=== PATIENT | male | born 1955 | race Caucasian/White ===

== ENCOUNTER 2019-05-30 08:00 | Emergency (ER) | payer MEDICARE ==
[~2019-05-30] VITALS: Ht 175.3 cm; Wt 59.0 kg
[~2019-05-30 08:00] MED LIST: Apap-Butalbita1 EACH PO; Aspir 8181 MG PO; CARV6.25 PO; LISI5 PO; SERT100 PO; SPIR25 PO; SUMA25 PO; TORSE20
[2019-05-30] MEDS ORDERED: Amoxicillin500 MG PO (08:40)
[2019-05-30] MEDS ORDERED: HYDR1TAB94 PO (08:49)
== END 2019-05-30 09:09 | disposition home or self-care (01) ==
LOC: ER 08:00
DX: K04.7 Periapical abscess without sinus (principal); K02.9 Dental caries, unspecified; I50.9 Heart failure, unspecified; E11.9 Type 2 diabetes mellitus without complications; F32.9 Major depressive disorder, single episode, unspecified; Z88.8 Allergy status to other drugs, medicaments and biological substances; Z88.1 Allergy status to other antibiotic agents; Z79.899 Other long term (current) drug therapy; Z79.82 Long term (current) use of aspirin; Z98.818 Other dental procedure status
CPT/HCPCS: 99283; A9270-GY

== ENCOUNTER 2019-06-17 14:58 | Emergency (ER) | payer OTHER, MEDICARE ==
[~2019-06-17] VITALS: Ht 175.3 cm; Wt 53.1 kg
[~2019-06-17 14:58] MED LIST changes: +Amoxicillin500 MG PO; +HYDR1TAB94 PO
[2019-06-17 16:05] LABS: BASOPHILS ABSOLUTE AUTO 0.04 K/mm3 (0.00-0.23); BASOPHILS PERCENT AUTO 0 % (0-2); EOSINOPHILS ABSOLUTE AUTO 0.45 K/mm3 (0.00-0.68); EOSINOPHILS PERCENT AUTO 5 % (0-6); Hemoglobin 12.2 g/dL (13.5-17.5); IMMATURE GRAN ABSOLUTE AUTO 0.03 K/mm3 (0.00-0.10); IMMATURE GRAN PERCENT AUTO 0 % (0-1); LYMPHOCYTES ABSOLUTE AUTO 2.16 K/mm3 (0.84-5.20); LYMPHOCYTES PERCENT AUTO 24 % (21-46); MONOCYTES ABSOLUTE AUTO 0.63 K/mm3 (0.16-1.47); MONOCYTES PERCENT AUTO 7 % (4-13); Mean Corpuscular HGB 29.8 pg (26.0-34.0); Mean Corpuscular Volume 90 fL (80-100); Mean Platelet Volume 8.6 fL (9.1-12.4); NEUTROPHILS PERCENT AUTO 63 % (41-73); Platelet Count 351 K/mm3 (150-400); RDW Coefficient Variation 14.3 % (11.7-14.2); RDW Standard Deviation 47.2 fL (35.1-46.3); White Blood Cell Count 9.01 K/mm3 (4.00-11.30)
[2019-06-17 16:18] LABS: Alanine Aminotransfer (ALT/SGP 24 U/L (12-78); Albumin, Blood 3.9 g/dL (3.4-5.0); Alk Phos 109 U/L (50-136); Anion Gap 6 mmol/L (6-16); Aspartate Aminotrans (AST/SGOT 15 U/L (12-37); Bilirubin, Total 0.6 mg/dL (0.1-1.0); Blood Urea Nitrogen 18 mg/dL (8-24); Bun/Creatinine Ratio 19.6 (12.0-20.0); CO2, Blood 27 mmol/L (21-32); Calcium, Blood 9.8 mg/dL (8.5-10.1); Chloride, Blood 99 mmol/L (98-108); Creatinine, Blood 0.92 mg/dL (0.60-1.20); Globulin, Blood 4.1 g/dL (2.2-4.0); Glomerular Filtration Rate >60 (60-); Glucose, Blood 383 mg/dL (70-99); Potassium, Blood 4.2 mmol/L (3.5-5.5); Sodium, Blood 132 mmol/L (136-145)
== END 2019-06-17 17:42 | disposition home or self-care (01) ==
LOC: ER 14:58
PROVIDERS: Physician Assistant
DX: E86.0 Dehydration (principal); E11.9 Type 2 diabetes mellitus without complications; Z88.8 Allergy status to other drugs, medicaments and biological substances; Z88.1 Allergy status to other antibiotic agents; Z79.899 Other long term (current) drug therapy; I11.0 Hypertensive heart disease with heart failure; Z79.82 Long term (current) use of aspirin; I50.9 Heart failure, unspecified; F32.9 Major depressive disorder, single episode, unspecified; D64.9 Anemia, unspecified; G43.909 Migraine, unspecified, not intractable, without status migrainosus; K21.9 Gastro-esophageal reflux disease without esophagitis; E03.9 Hypothyroidism, unspecified
CPT/HCPCS: 36415; 80053; 85025; 93005; 93010; 96360; 99284-25; J7030

== ENCOUNTER 2020-12-26 04:02 | Inpatient (IN) | payer OTHER, MEDICARE ==
[~2020-12-26] VITALS: Ht 175.3 cm; Wt 45.5 kg
[2020-12-26 04:53] LABS: BASOPHILS ABSOLUTE AUTO 0.03 K/mm3 (0.00-0.23); BASOPHILS PERCENT AUTO 0 % (0-2); EOSINOPHILS PERCENT AUTO 0 % (0-6); Hematocrit 37.7 % (37.0-53.0); Hemoglobin 12.6 g/dL (13.5-17.5); IMMATURE GRAN ABSOLUTE AUTO 0.09 K/mm3 (0.00-0.10); IMMATURE GRAN PERCENT AUTO 1 % (0-1); LYMPHOCYTES ABSOLUTE AUTO 0.58 K/mm3 (0.84-5.20); LYMPHOCYTES PERCENT AUTO 3 % (21-46); MONOCYTES ABSOLUTE AUTO 0.56 K/mm3 (0.16-1.47); MONOCYTES PERCENT AUTO 3 % (4-13); Mean Corpuscular HGB 27.9 pg (26.0-34.0); Mean Corpuscular HGB Conc 33.4 g/dL (31.5-36.5); Mean Corpuscular Volume 83 fL (80-100); Mean Platelet Volume 8.5 fL (9.1-12.4); NEUTROPHILS ABSOLUTE AUTO 16.91 K/mm3 (1.96-9.15); NEUTROPHILS PERCENT AUTO 93 % (41-73); Platelet Count 410 K/mm3 (150-400); RDW Coefficient Variation 13.2 % (11.7-14.2); RDW Standard Deviation 40.2 fL (35.1-46.3); Red Blood Cell Count 4.52 M/mm3 (4.30-5.90); White Blood Cell Count 18.17 K/mm3 (4.00-11.30)
[2020-12-26 05:07] LABS: Troponin I 0.021 ng/mL (0.000-0.040)
[2020-12-26 05:08] LABS: Alanine Aminotransfer (ALT/SGP 24 U/L (12-78); Albumin, Blood 3.2 g/dL (3.4-5.0); Albumin/Globulin Ratio 0.6 (0.8-1.8); Alk Phos 248 U/L (50-136); Anion Gap 7 mmol/L (6-16); Aspartate Aminotrans (AST/SGOT 23 U/L (12-37); Bilirubin, Total 0.5 mg/dL (0.1-1.0); Blood Urea Nitrogen 25 mg/dL (8-24); Bun/Creatinine Ratio 28.5 (12.0-20.0); CO2, Blood 30 mmol/L (21-32); Calcium, Blood 9.1 mg/dL (8.5-10.1); Chloride, Blood 88 mmol/L (98-108); Creatinine, Blood 0.88 mg/dL (0.60-1.20); Globulin, Blood 5.6 g/dL (2.2-4.0); Glomerular Filtration Rate >60 (60-); Glucose, Blood 687 mg/dL (70-99); Potassium, Blood 3.7 mmol/L (3.5-5.5); Sodium, Blood 125 mmol/L (136-145); Total Protein, Blood 8.8 g/dL (6.4-8.2)
[2020-12-26 06:07] LABS: Source, Urine Clean Catch
[2020-12-26 06:15] LABS: Appearance, Urine Clear (Clear); Bilirubin, Urine Neg (Neg); Blood, Urine 2+ (Neg); Color, Urine Yellow (P-Yellow); Glucose Qualitative, Urine 4+ (Neg); Ketones, Urine Neg (Neg); Leukocyte Esterase, Urine 3+ (Neg); Nitrite, Urine Neg (Neg); Protein, Urine 2+ (Neg); Urobilinogen, Urine NORM (Normal); pH, Urine 6.5 (5.0-8.0)
[2020-12-26 06:21] LABS: Bacteria Many /hpf; Red Blood Cells, Urine 0-2 /hpf (0-2); Squamous Epithelial Cells Not Seen /hpf (Few); White Blood Cells, Urine 25-50 /hpf (0-5)
[2020-12-26 07:41] LABS: Glucose, Blood 619 mg/dL (70-99)
[2020-12-26 08:16] LABS: Influenza A, PCR NEGATIVE (NEGATIVE); Influenza B, PCR NEGATIVE (NEGATIVE); Resp Syncytial Virus, PCR NEGATIVE (NEGATIVE); SARS-Cov-2 (COVID-19) PCR, MMC NEGATIVE (NEGATIVE)
[2020-12-26 08:38] LABS: Glucose, Blood 594 mg/dL (70-99)
--- NOTE | 2020-12-26 09:29 | NUR ---
PT ADMITTED TO ICU 8 FROM ER AT 0830 PCU STATUS. PT IS CACHECTIC. STATES HE HAS POOR APPETITE AND PROBLEMS WITH HIS TEETH. PT IS A/O X4, C/O PAIN IN L SIDE/FLANK AREA. GAVE TYLENOL AND FENTANYL WITH GOOD RESULTS. PT CAN REPOSITION SELF IN BED. NO SIGN OF DISTRESS. CALL LIGHT IN REACH.
[2020-12-26 11:56] LABS: Glucose, Blood 492 mg/dL (70-99)
--- NOTE | 2020-12-26 12:33 | NUR ---
PT RESTING IN BED. GLUCOSE CONTINUES TO BE HIGH. GAVE SS INSULIN, HAVE CALL OUT TO DR. COFFMAN. PT IS NPO.
--- NOTE | 2020-12-26 18:28 | NUR ---
SUMMARY PT HAS BEEN RESTING MOST OF THE DAY. HAS R SIDE FLANK PAIN AT TIMES. FENTANYL AND TYLENOL GIVEN PRN. GLUCOSE WAS ELEVATED MOST OF THE DAY. DR. COFFMAN NOTIFIED. NEW ORDERS FOR SEMGLFRITZ TONIGHT. AFTER AFTERNOON DOSE OF INSULIN GLUCOSE WAS IN THE 90'S BEFORE DINNER. PT EATING A SOFT DIET WELL. NO SIGN OF DISTRESS. NO OTHER CHANGES.
--- NOTE | 2020-12-26 20:58 | NUR ---
CARE ASSUMPTION PT PCU STATUS. A&O X4. VSS. SPO2 > 92% ON RA. LUNG SOUNDS CLEAR. MONITOR SHOWING SR-ST, HR 90's-105. PT REPORTS ABD PAIN, STATING "IT STARTED ON MY LEFT SIDE, BUT IT'S BEEN MOVING OVER ONTO MY R SIDE NOW TOO." PT DESCRIBES PAIN AN "ACHE" X3 WEEKS. PT MEDICATED PER EMAR/PT REQUEST. PT REPORTS POOR OVERALL ORAL INTAKE, STATING "I'VE JUST BEEN SO DRY." NS GTT INFUSING PER ORDERS & PT PROVIDED W/ BEVERAGE PER PT REQUEST. PT NOTED TO BE VERY FRAIL. PT ABLE TO REPOSITION SELF IN BED & ENCOURAGED TO DO SO FREQUENTLY ABLE.
[2020-12-27 03:28] LABS: BASOPHILS ABSOLUTE AUTO 0.02 K/mm3 (0.00-0.23); BASOPHILS PERCENT AUTO 0 % (0-2); EOSINOPHILS ABSOLUTE AUTO 0.03 K/mm3 (0.00-0.68); EOSINOPHILS PERCENT AUTO 0 % (0-6); Hematocrit 26.4 % (37.0-53.0); IMMATURE GRAN ABSOLUTE AUTO 0.06 K/mm3 (0.00-0.10); IMMATURE GRAN PERCENT AUTO 0 % (0-1); LYMPHOCYTES ABSOLUTE AUTO 0.84 K/mm3 (0.84-5.20); LYMPHOCYTES PERCENT AUTO 6 % (21-46); MONOCYTES ABSOLUTE AUTO 0.46 K/mm3 (0.16-1.47); MONOCYTES PERCENT AUTO 3 % (4-13); Mean Corpuscular HGB 28.5 pg (26.0-34.0); Mean Corpuscular HGB Conc 34.1 g/dL (31.5-36.5); Mean Corpuscular Volume 84 fL (80-100); Mean Platelet Volume 8.3 fL (9.1-12.4); NEUTROPHILS PERCENT AUTO 90 % (41-73); Platelet Count 288 K/mm3 (150-400); RDW Coefficient Variation 13.5 % (11.7-14.2); RDW Standard Deviation 41.8 fL (35.1-46.3); Red Blood Cell Count 3.16 M/mm3 (4.30-5.90); White Blood Cell Count 14.01 K/mm3 (4.00-11.30)
[2020-12-27 03:56] LABS: Anion Gap 4 mmol/L (6-16); Blood Urea Nitrogen 25 mg/dL (8-24); Bun/Creatinine Ratio 25.2 (12.0-20.0); CO2, Blood 30 mmol/L (21-32); Calcium, Blood 7.9 mg/dL (8.5-10.1); Chloride, Blood 102 mmol/L (98-108); Creatinine, Blood 0.99 mg/dL (0.60-1.20); Glomerular Filtration Rate >60 (60-); Glucose, Blood 82 mg/dL (70-99); Potassium, Blood 3.4 mmol/L (3.5-5.5); Sodium, Blood 136 mmol/L (136-145)
[2020-12-27] MEDS ORDERED: LISI5 PO (03:57)
[2020-12-27] MEDS ORDERED: TORS10 PO (03:58)
[2020-12-27] MEDS ORDERED: SPIR25 PO (03:58)
--- NOTE | 2020-12-27 05:51 | NUR ---
SHIFT SUMMARY PT CONTINUES TO BE A&O X4. VSS. SPO2 > 92% ON RA. MONITOR SHOWING SR-ST, HR 90's-110. PT REPORTS NOT HAVING TAKEN ANY OF HIS HOME MEDICATIONS EXCEPT FOR HIS INSULIN FOR "ABOUT A MONTH", STATING "I WAS TRYING TO SELF DIAGNOSE. I WAS GETTING SO DIZZY I COULDN'T KEEP MY OWN HEAD UP." PT C/O L&R SIDED ABD PAIN, MEDICATED W/ PRN IV FENTANYL X1 THIS SHIFT W/ PT REPORT OF IMPROVEMENT. PT HS CBG 139 THIS SHIFT W/ PT REPORT OF NORMALLY TAKING 50 UNITS OF LONG ACTING INSULIN @ HOME & STATING "MY BLOOD SUGAR IS ALWAYS HIGH IN THE HUNDREDS IN THE MORNING." PT MEDICATED W/ CURRENT ORDER OF 20 UNITS LONG ACTING INSULIN PER EMAR AFTER DISCUSSION W/ PT. PT PROVIDED W/ MAGIC CUP SNACK IN MIDDLE OF NIGHT ALONG W/ CHEESE & CRACKERS PER PT REQUEST D/T PT STATEMENT "I FEEL LIKE MY BLOOD SUGAR IS GOING TO GET LOW." CBG THEN 89 W/ AM LABS AFTER SNACK. PT THEN GIVEN ORANGE JUICE & PUDDING PER PT REQUEST. NS GTT INFUSING PER ORDERS. WILL CONTINUE TO MONITOR & PROVIDE CARE UNTIL REPORT OFF TO DAY SHIFT RN.
[2020-12-27] MEDS ORDERED: AMLO5 PO (09:16)
[2020-12-27] MEDS ORDERED: FAMO20 PO (09:19)
[2020-12-27] MEDS ORDERED: LOSA50 PO (09:21)
[2020-12-27] MEDS ORDERED: PSYSENPA PO (09:22)
--- NOTE | 2020-12-27 17:01 | NUR ---
PATIENT IS ALERT AND ORIENTED AND IS COOPERATIVE WITH CARE. PATIENT WAS TRANSFERRED UP HERE FROM ICU THIS AFTERNOON. C/O FLANK PAIN, TREATED PER EMAR. NO C/O NAUSEA OR VOMTIING. PATIENT USES URINAL. CALLS APPROPRIATELY FOR HELP. WILL CONTINUE TO MONITOR
[2020-12-28 04:52] LABS: BASOPHILS ABSOLUTE AUTO 0.02 K/mm3 (0.00-0.23); BASOPHILS PERCENT AUTO 0 % (0-2); EOSINOPHILS ABSOLUTE AUTO 0.07 K/mm3 (0.00-0.68); EOSINOPHILS PERCENT AUTO 1 % (0-6); Hemoglobin 8.8 g/dL (13.5-17.5); IMMATURE GRAN ABSOLUTE AUTO 0.06 K/mm3 (0.00-0.10); IMMATURE GRAN PERCENT AUTO 1 % (0-1); LYMPHOCYTES ABSOLUTE AUTO 0.97 K/mm3 (0.84-5.20); LYMPHOCYTES PERCENT AUTO 8 % (21-46); MONOCYTES ABSOLUTE AUTO 0.38 K/mm3 (0.16-1.47); MONOCYTES PERCENT AUTO 3 % (4-13); Mean Corpuscular HGB 27.9 pg (26.0-34.0); Mean Corpuscular HGB Conc 32.6 g/dL (31.5-36.5); Mean Corpuscular Volume 86 fL (80-100); Mean Platelet Volume 8.7 fL (9.1-12.4); NEUTROPHILS PERCENT AUTO 88 % (41-73); Platelet Count 308 K/mm3 (150-400); RDW Coefficient Variation 13.9 % (11.7-14.2); RDW Standard Deviation 43.8 fL (35.1-46.3); Red Blood Cell Count 3.15 M/mm3 (4.30-5.90)
[2020-12-28 05:10] LABS: Anion Gap 6 mmol/L (6-16); Blood Urea Nitrogen 27 mg/dL (8-24); Bun/Creatinine Ratio 25.7 (12.0-20.0); CO2, Blood 27 mmol/L (21-32); Calcium, Blood 7.8 mg/dL (8.5-10.1); Chloride, Blood 98 mmol/L (98-108); Creatinine, Blood 1.05 mg/dL (0.60-1.20); Glomerular Filtration Rate >60 (60-); Glucose, Blood 282 mg/dL (70-99); Potassium, Blood 4.2 mmol/L (3.5-5.5); Sodium, Blood 131 mmol/L (136-145)
--- NOTE | 2020-12-28 06:17 | NUR ---
Simon was able to tolerate his flank pain and get some rest with the aid of 25mcg fentanyl twice overnight. He is alert and oriented and very frustrated with himself for tolerating his discomfort for so long before coming in for help. His urine now is pale yellow and clear. patient states yesterday, it looked purulent. Ate 100% of his snack last night which he needed as he had eaten no dinner.
--- NOTE | 2020-12-28 16:22 | NUR ---
SHIFT SUMMARY NO ACUTE CHANGES T/O SHIFT, A&Ox4, CALM AND COOPERATIVE c CARE. PT TENDS TO HAVE A FLAT EFFECT T/O SHIFT. PT DENIES ANY DISTRESS BESIDES PAIN. TREATED PER EMAR WITH IV FENTANYL X1, PT IS NOW PRESCRIBED PO PAIN MEDICATIONS. FENTANYL HAS BEEN DC'D. HOPEFUL TO DC TOMORROW. PT AMBULATED WELL c OT TODAY, UP IN CHAIR FOR LUNCH AND ABLE TO AMBULATE TO THE BATHROOM AND AROUND ROOM. PT HAS HAD A GOOD APPETITE AND STAFF IS ENCOURAGING FLUIDS T/O DAY. PT IS CURRENTLY SLEEPING IN BED c TV ON AND CALL LIGHT WITHIN REACH. PT CALLS APPROPRIATELY.
--- NOTE | 2020-12-29 04:23 | NUR ---
SHIFT SUMMARY ADMITTED FOR PYELONEPHRITIS. FULL CODE. IV ANTIBIOTICS ARE SCHEDULED. PLAN IS FOR DC HOME W/HH AND A FWW. HE HAS A WOMAN HE CALLS HIS CAREGIVER WHO LIVES WITH HIM. TREATED FOR PAIN 1X. A&O X4 BUT SLOW TO RESPOND. FRAIL AND EMACIATED IN APPEARANCE.
[2020-12-29 04:29] LABS: BASOPHILS ABSOLUTE AUTO 0.02 K/mm3 (0.00-0.23); BASOPHILS PERCENT AUTO 0 % (0-2); EOSINOPHILS PERCENT AUTO 1 % (0-6); Hematocrit 25.9 % (37.0-53.0); Hemoglobin 8.7 g/dL (13.5-17.5); IMMATURE GRAN ABSOLUTE AUTO 0.08 K/mm3 (0.00-0.10); IMMATURE GRAN PERCENT AUTO 1 % (0-1); LYMPHOCYTES ABSOLUTE AUTO 0.88 K/mm3 (0.84-5.20); LYMPHOCYTES PERCENT AUTO 7 % (21-46); MONOCYTES ABSOLUTE AUTO 0.53 K/mm3 (0.16-1.47); MONOCYTES PERCENT AUTO 4 % (4-13); Mean Corpuscular HGB 28.7 pg (26.0-34.0); Mean Corpuscular HGB Conc 33.6 g/dL (31.5-36.5); Mean Corpuscular Volume 86 fL (80-100); Mean Platelet Volume 8.7 fL (9.1-12.4); NEUTROPHILS ABSOLUTE AUTO 10.78 K/mm3 (1.96-9.15); NEUTROPHILS PERCENT AUTO 87 % (41-73); Platelet Count 258 K/mm3 (150-400); RDW Coefficient Variation 13.5 % (11.7-14.2); RDW Standard Deviation 42.5 fL (35.1-46.3); Red Blood Cell Count 3.03 M/mm3 (4.30-5.90); White Blood Cell Count 12.39 K/mm3 (4.00-11.30)
[2020-12-29 04:44] LABS: Anion Gap 6 mmol/L (6-16); Blood Urea Nitrogen 26 mg/dL (8-24); CO2, Blood 29 mmol/L (21-32); Chloride, Blood 97 mmol/L (98-108); Glomerular Filtration Rate >60 (60-); Glucose, Blood 87 mg/dL (70-99); Potassium, Blood 4.2 mmol/L (3.5-5.5); Sodium, Blood 132 mmol/L (136-145)
--- NOTE | 2020-12-29 05:39 | NUR ---
DIRECTOR OF SOLUTIONS ARCHITECTURE/CTA I HAVE READ DIRECTOR OF SOLUTIONS ARCHITECTURE SCOT'S DOCUMENTATION ON THIS PT AND I CONCUR. [email or web address]
--- NOTE | 2020-12-29 09:08 | NUR ---
CBG THIS AM WAS 61, PROVIDED PT WITH APPLE JUICE AND VENKATESH CRACKERS c PB. REASSESSED CBG 15 MINUTES LATER HAD IT WENT UP TO 65. GAVE PT THEIR BREAKFAST AND REASSESSED AFTER HE WAS FINISHED. HIS CBG IS NOW 102. PT WAS A&OX4 T/O THIS TIME.
[2020-12-29] MEDS ORDERED: ACET325 PO (13:24)
[2020-12-29] MEDS ORDERED: Norco 5-325 Ta1 EACH PO (13:24)
[2020-12-29] MEDS ORDERED: KLOR-CON 1010 ME1 PO (13:25)
[2020-12-29] MEDS ORDERED: Cefpodoxime Pr200 MG PO (13:26)
[2020-12-29] MEDS ORDERED: VISBIOME 112.51 EACH PO (13:26)
--- NOTE | 2020-12-29 17:00 | NUR ---
PT DISCHARGED @ APPROX 1700. TAKEN DOWN TO PRIVATE VEHICLE BY WHEELCHAIR. EX CAME TO RAILROAD [facility]MAN PT. DISCHARGE INSTRUCTIONS WERE REVIEWED WITH PT. HARD SCRIPT FOR PAIN MEDICATION WAS PROVIDED. ALL NEEDED RX FAXED TO [place] [facility]. IV WAS REMOVED PRIOR TO DISCHARGE, SITE APPEARED WNL. PT STATED HE HAD ALL OF HIS BELONGINGS. PT AMBULATED WELL TO WHEELCHAIR AND INTO VEHICLE.
== END 2020-12-29 16:50 | disposition home or self-care (01) | DRG 871 ==
LOC: ER 04:02 → ICUE 06:12 → ERHOLD 06:12 → ICUE 07:21 → MEDS 12-27 16:15
PROVIDERS: Emergency Medicine; Internal Medicine; ADMIT Family Medicine
DX: A40.1 Sepsis due to streptococcus, group B (principal); E43 Unspecified severe protein-calorie malnutrition; J18.9 Pneumonia, unspecified organism; E87.1 Hypo-osmolality and hyponatremia; N10 Acute pyelonephritis; I13.0 Hypertensive heart and chronic kidney disease with heart failure and stage 1 through stage 4 chronic kidney disease, or unspecified chronic kidney disease; I50.20 Unspecified systolic (congestive) heart failure; N13.30 Unspecified hydronephrosis; Z68.1 Body mass index [BMI] 19.9 or less, adult; Z20.822 Contact with and (suspected) exposure to COVID-19; D63.1 Anemia in chronic kidney disease; E86.0 Dehydration; E11.65 Type 2 diabetes mellitus with hyperglycemia; I25.10 Atherosclerotic heart disease of native coronary artery without angina pectoris; E03.9 Hypothyroidism, unspecified; E11.22 Type 2 diabetes mellitus with diabetic chronic kidney disease; N18.9 Chronic kidney disease, unspecified; G47.00 Insomnia, unspecified; F32.9 Major depressive disorder, single episode, unspecified; K21.9 Gastro-esophageal reflux disease without esophagitis; Z91.14 Patient's other noncompliance with medication regimen; Z79.4 Long term (current) use of insulin
CPT/HCPCS: 0241U; 36415; 74176; 80048; 80053; 81001; 82947; 83036; 83605; 83690; 84443; 84484; 85025; 87040; 87086; 87147; 93005; 93010; 96361; 96365; 96375; 97116; 97161; 97165; 97530; 97535; 99285-25; A9270; J0456; J0696; J1650; J1815; J2405; J3010; J3370; J7030; J7050

== ENCOUNTER 2021-01-14 17:10 | Inpatient (IN) | payer OTHER, MEDICARE ==
[~2021-01-14] VITALS: Ht 175.3 cm; Wt 54.4 kg
[~2021-01-14 17:10] MED LIST changes: +ACET325 PO; +AMLO5 PO; +Cefpodoxime Pr200 MG PO; +FAMO20 PO; +KLOR-CON 1010 ME1 PO; +LOSA50 PO; +Norco 5-325 Ta1 EACH PO; +PSYSENPA PO; +TORS10 PO; +VISBIOME 112.51 EACH PO
[2021-01-14 17:25] LABS: Calcium, Ionized (POC) 1.02 mmol/L (1.10-1.46); Chloride (POC) 99 mmol/L (98-108); Creatinine (POC) 1.3 mg/dL (0.8-1.3); Glucose (ISTAT POC) 355 mg/dL (70-99); Hemoglobin (POC) 10.5 g/dL (13.5-17.5); Sodium (POC) 131 mmol/L (135-148); Total CO2 (POC) 18 mmol/L (21-32)
[2021-01-14 18:09] LABS: BASOPHILS ABSOLUTE AUTO 0.03 K/mm3 (0.00-0.23); BASOPHILS PERCENT AUTO 0 % (0-2); EOSINOPHILS ABSOLUTE AUTO 0.01 K/mm3 (0.00-0.68); EOSINOPHILS PERCENT AUTO 0 % (0-6); Hematocrit 30.6 % (37.0-53.0); Hemoglobin 9.6 g/dL (13.5-17.5); IMMATURE GRAN ABSOLUTE AUTO 0.05 K/mm3 (0.00-0.10); IMMATURE GRAN PERCENT AUTO 1 % (0-1); LYMPHOCYTES ABSOLUTE AUTO 1.95 K/mm3 (0.84-5.20); LYMPHOCYTES PERCENT AUTO 24 % (21-46); MONOCYTES ABSOLUTE AUTO 0.45 K/mm3 (0.16-1.47); MONOCYTES PERCENT AUTO 6 % (4-13); Mean Corpuscular HGB 27.6 pg (26.0-34.0); Mean Corpuscular HGB Conc 31.4 g/dL (31.5-36.5); Mean Corpuscular Volume 88 fL (80-100); Mean Platelet Volume 9.5 fL (9.1-12.4); NEUTROPHILS ABSOLUTE AUTO 5.64 K/mm3 (1.96-9.15); NEUTROPHILS PERCENT AUTO 69 % (41-73); Platelet Count 405 K/mm3 (150-400); RDW Coefficient Variation 14.6 % (11.7-14.2); RDW Standard Deviation 46.7 fL (35.1-46.3); Red Blood Cell Count 3.48 M/mm3 (4.30-5.90); White Blood Cell Count 8.13 K/mm3 (4.00-11.30)
[2021-01-14 18:21] LABS: Alanine Aminotransfer (ALT/SGP 612 U/L (12-78); Albumin, Blood 2.5 g/dL (3.4-5.0); Albumin/Globulin Ratio 0.6 (0.8-1.8); Alk Phos 349 U/L (50-136); Anion Gap 14 mmol/L (6-16); Bilirubin, Total 0.7 mg/dL (0.1-1.0); Blood Urea Nitrogen 42 mg/dL (8-24); Bun/Creatinine Ratio 34.4 (12.0-20.0); CO2, Blood 17 mmol/L (21-32); Calcium, Blood 8.3 mg/dL (8.5-10.1); Chloride, Blood 99 mmol/L (98-108); Creatinine, Blood 1.22 mg/dL (0.60-1.20); Globulin, Blood 4.1 g/dL (2.2-4.0); Glomerular Filtration Rate >60 (60-); Glucose, Blood 364 mg/dL (70-99); Sodium, Blood 130 mmol/L (136-145); Total Protein, Blood 6.6 g/dL (6.4-8.2)
[2021-01-14] MEDS ORDERED: Aspirin EC81 MG PO (18:27)
[2021-01-14] MEDS ORDERED: ATOR10 PO (18:27)
[2021-01-14] MEDS ORDERED: NOVOLOG FL100 UNIT/3 SC (18:30)
[2021-01-14] MEDS ORDERED: CARVEDILOL12.5 MG PO (18:31)
[2021-01-14] MEDS ORDERED: Vitamin D2000 UNIT PO (18:32)
[2021-01-14] MEDS ORDERED: FISH OIL-VIT D1 EACH PO (18:32)
[2021-01-14] MEDS ORDERED: BASAGLAR K100 UNIT/1 SC (18:33)
[2021-01-14] MEDS ORDERED: GLUCOPHAGE1000 M5 PO (18:34)
[2021-01-14] MEDS ORDERED: SERT100 PO (18:34)
[2021-01-14] MEDS ORDERED: MAGNESIUM OXID400 M1 PO (18:34)
[2021-01-14 18:35] LABS: Aspartate Aminotrans (AST/SGOT 1188 U/L (12-37)
[2021-01-14] MEDS ORDERED: LOSARTAN POTAS100 M1 PO (18:35)
--- NOTE | 2021-01-14 20:45 | NUR ---
PATIENT ARRIVED TO ICU 11 VIA BED FROM GOLF COURSE ASSISTANT. IMPELLA IN PLACE TO RIGHT GROIN AT 84CM PHOEBE, SEE FLOW SHEET. SWAN LINE TO RIGHT GROIN AT 65CM SINGLE LUMEN PLACED TO ICU MONITORING. LEFT GROIN CENTRAL LINE OOZING BLOOD FROM INSERTION SITE, NO SWELLING OR BRUISING SEEN FROM PERCLOSE SITE. BOTH KNEES BRUISED AND DISCOLORED, MULTIPLE SCATTERED SCABS SEEN. BOTH FEET COLD TO TOUCH, GOOD CAP REFILL. PATIENT C/O FEELING COLD BEAR HUGGER PLACED OVER PATIENT. ADMIT HX OBTAINED FROM PATIENT AND PATIENTS DAUGHTER CORINNE.
[2021-01-14 23:11] LABS: Base Excess Venous -6.1 mmol/L; Bicarbonate Venous 19.3 mmol/L (24.0-30.0); PCO2 Venous 35.9 mmHg (38-42); PO2 Venous 35.7 mmHg (38-42); pH Blood Venous 7.35 (7.34-7.37)
[2021-01-14 23:13] LABS: PCO2 Arterial 32.6 mmHg (35-45); pH Blood Arterial 7.37 (7.35-7.45)
--- NOTE | 2021-01-14 23:45 | NUR ---
AT 2300 SPOKE TO KARLA (IMPELLA REP) RECOMMENDED PA GAS, VBG, AND LACTIC OBTAINED. SPOKE TO DOCTOR NOLAN WITH THESE RESULTS, CHANGED IMPELLA FROM P6 DOWN TO P5. DOBUTAMINE ORDERED TO RUN AT A LOW RATE. FENTANYL AND AMBIEN ORDERS TO HELP PATIENT DELICIA LAYING FLAT
[2021-01-15 04:34] LABS: BASOPHILS PERCENT AUTO 0 % (0-2); EOSINOPHILS PERCENT AUTO 0 % (0-6); Hematocrit 25.2 % (37.0-53.0); Hemoglobin 8.2 g/dL (13.5-17.5); IMMATURE GRAN ABSOLUTE AUTO 0.15 K/mm3 (0.00-0.10); IMMATURE GRAN PERCENT AUTO 2 % (0-1); LYMPHOCYTES PERCENT AUTO 9 % (21-46); MONOCYTES PERCENT AUTO 5 % (4-13); Mean Corpuscular HGB 28.3 pg (26.0-34.0); Mean Corpuscular HGB Conc 32.5 g/dL (31.5-36.5); Mean Corpuscular Volume 87 fL (80-100); Mean Platelet Volume 9.2 fL (9.1-12.4); NEUTROPHILS ABSOLUTE AUTO 8.33 K/mm3 (1.96-9.15); NEUTROPHILS PERCENT AUTO 84 % (41-73); Platelet Count 294 K/mm3 (150-400); RDW Coefficient Variation 14.6 % (11.7-14.2); RDW Standard Deviation 46.2 fL (35.1-46.3); White Blood Cell Count 9.88 K/mm3 (4.00-11.30)
[2021-01-15 05:28] LABS: Albumin, Blood 2.4 g/dL (3.4-5.0); Albumin/Globulin Ratio 0.6 (0.8-1.8); Bilirubin, Total 1.9 mg/dL (0.1-1.0); Bun/Creatinine Ratio 33.3 (12.0-20.0); Calcium, Blood 7.7 mg/dL (8.5-10.1); Creatinine, Blood 1.5 mg/dL (0.60-1.20); Globulin, Blood 3.8 g/dL (2.2-4.0); Potassium, Blood 5.4 mmol/L (3.5-5.5); Total Protein, Blood 6.2 g/dL (6.4-8.2)
--- NOTE | 2021-01-15 05:51 | NUR ---
DRESSING TO LEFT GROIN, CENTRAL LINE AND PERCLOSE SITE, CHANGED. PERCLOSE SITE CONTINUES TO HAVE A SLOW OOZE, NO SWELLING SEEN. DIRECT PRESSURE HELD AND LUL DRESSING PLACED OVER SITE THEN A TEGADERM CHG DRESSING PLACED OVER CENTRAL LINE. RIGHT GROIN SITE REMAINS SOFT AND NO OOZING SEEN TO RIGHT GROIN SITES.
--- NOTE | 2021-01-15 06:36 | NUR ---
SUMMARY PATIENT SLEEPING OFF AND ON T/O NIGHT, DOING WELL WITH LAYING FLAT DUE TO IMPELLA TO RIGHT GROIN AT 84 CM PHOEBE. FENTANYL IV GIVEN TWICE FOR C/O LEG PAIN IMPELLA CONTINUES P5, FLOW CONSISTENTLY 2.0. URINE OUTPUT IMPROVING. SWAN LINE ALSO TO RIGHT GROIN SINGLE LUMEN LINE SHOWING PA PRESSURES SLOWLY COMING DOWN. DOBUTAMINE 2 MCG CONTINUES. UNABLE TO OBTAIN NIBP DUE TO IMPELLA INTERFERENCE. HEPARIN DRIP 11 UNITS PER PHARMACY. LEFT GROIN SITE CONTINUES TO HAVE BLOODY OOZING. DRESSING CHANGED WITH LUL DRESSING OVER PERCLOSE SITE. SPOKE WITH KARLA (IMPELLA REP) AND GIVEN UPDATE.
[2021-01-15 07:30] LABS: BASOPHILS ABSOLUTE AUTO 0.01 K/mm3 (0.00-0.23); BASOPHILS PERCENT AUTO 0 % (0-2); EOSINOPHILS PERCENT AUTO 0 % (0-6); Hematocrit 25.1 % (37.0-53.0); Hemoglobin 8.2 g/dL (13.5-17.5); IMMATURE GRAN ABSOLUTE AUTO 0.08 K/mm3 (0.00-0.10); IMMATURE GRAN PERCENT AUTO 1 % (0-1); LYMPHOCYTES ABSOLUTE AUTO 1.09 K/mm3 (0.84-5.20); LYMPHOCYTES PERCENT AUTO 10 % (21-46); MONOCYTES ABSOLUTE AUTO 0.43 K/mm3 (0.16-1.47); MONOCYTES PERCENT AUTO 4 % (4-13); Mean Corpuscular HGB 28.4 pg (26.0-34.0); Mean Corpuscular HGB Conc 32.7 g/dL (31.5-36.5); Mean Corpuscular Volume 87 fL (80-100); Mean Platelet Volume 9.2 fL (9.1-12.4); NEUTROPHILS ABSOLUTE AUTO 9.65 K/mm3 (1.96-9.15); NEUTROPHILS PERCENT AUTO 86 % (41-73); Platelet Count 251 K/mm3 (150-400); RDW Coefficient Variation 14.6 % (11.7-14.2); RDW Standard Deviation 45.7 fL (35.1-46.3); Red Blood Cell Count 2.89 M/mm3 (4.30-5.90); White Blood Cell Count 11.26 K/mm3 (4.00-11.30)
[2021-01-15 07:43] LABS: Bun/Creatinine Ratio 32.5 (12.0-20.0); Calcium, Blood 7.8 mg/dL (8.5-10.1); Creatinine, Blood 1.57 mg/dL (0.60-1.20); Potassium, Blood 5.1 mmol/L (3.5-5.5)
--- NOTE | 2021-01-15 08:15 | NUR ---
ASSESSMENT- PT AWAKE, ALERT, C/O CHEST PAIN-RATED 6 ON SCALE, STATES NEW, HAD NOT HAD THROUGH THE NIGHT. DR. FRANCISCO AT BESIDE. EKG DONE, FENTANYL GIVEN AND ISOSORBIDE WITH IMPROVEMENT OF PAIN TO LEVEL 3/4. DENIES SOB, SKIN W/D, COLOR PALE. SINUS TACH, HEART SOUNDS MUFFLED. IMPELLA IN PLACE AT P5 TO RIGHT FEMORAL SITE. SWAN WITH PA PORT ONLY TO RIGHT GROIN, MONITORING PA PRESSURES CONTINUOUSLY. PEDAL PULSES FAINT, NUNBNESS AND TINGLING TO BOTH FEET-STATES UNCHANGED, CHRONIC. LAC AND RAC SL INTACT. HEPARIN GTT AT 11 UNIT/KG/HR TO RAC. DOBUTAMINE GTT INCREASED FROM 2 TO 4 MCG/KG/MIN PER PHYSICIAN TO LEFT FEMORAL CENTRAL LINE. NS ON PRESSURE BAG TO IMPELLA. D5W FLUSH INFUSING PER MACHINE. UO VIA BEDOLLA ADEQUATE, CLEAR HERNAN. ABLE TO USE CALL LIGHT, REVIEWED PRECAUTIONS, STATES UNDERSTANDING. LOG ROLL TO CHANGE LINEN-TOLERATED WELL.
--- NOTE | 2021-01-15 09:14 | NUR ---
STATES PAIN DECREASED TO LEVEL 2 AND THEN RESOLVED, NOW DOZING. DR. FRANCISCO CALLED-UPDATED. NOW HERE AND ADJUSTED IMPELLA WITH DIESEL ENGINE TESTER TO 84 CM. PT TOLERATED WITH NO CP OR SOB BUT C/O PAIN AT SITE, RX WITH FENTANYL. TAKING ICE CHIPS, SIPS WATER NO N/V. MAP STABLE. P FLOW CHANGED TO LEVEL 4. DR. FRANCISCO WILL DECREASE TOLERATED TODAY. ORDERS FOR TWO PACKED CELLS, FIRST UNIT STARTED
--- NOTE | 2021-01-15 09:28 | NUR ---
NOTIFIED DR. COFFMAN OF POTASSIUM LEVELS PER DR. FRANCISCO REQUEST. NOTIFIED DR. LORENZO OF CONSULT. VS-MAP 70'S. ABLE TO TAKE PO FLUIDS WITH ASSIST. DENIES CHEST PAIN
--- NOTE | 2021-01-15 09:56 | NUR ---
BLOOD INFUSING NO S/S REACTION. VS UNCHANGED. RESTING WITHOUT COMLAINTS. FEET WARM, LINES UNCHANGED.
--- NOTE | 2021-01-15 11:08 | NUR ---
ECHOCARDIOGRAM COMPLETE
--- NOTE | 2021-01-15 12:10 | NUR ---
DR. FRANCISCO HERE-CHANGED TO P3. MAP 70'S. SINUS TACH. BRIEF EPISODE OF NAUSEA AFTER TAKING JUICE, RESOLVED QUICKLY WITH ZOFRAN. DR. FRANCISCO OK TO KEEP PERIPHERAL HEPARIN INFUSING AND KEEP JUST D5 TO IMPELLA. DR. LORENZO HERE-ASSESSED PT. PT REFUSED ARTERIAL LINE. EXPLAINED PLAN OF CARE BUT REFUSED. USING PRESSURES FROM IMPELLA. INCONSISTENT PERIPHERAL PRESSURES ON EITHER ARM. SKIN WARM, DRY. NO CHEST PAIN. LINES INTACT. SECOND UNIT OF PACKED CELLS INFUSING.
--- NOTE | 2021-01-15 12:50 | NUR ---
DR. FRANCISCO AT BEDSIDE. C/O NAUSEA AGAIN, ZOFRAN REPEATED. PLANS TO DECREASE P3 IF VS REMAIN STABLE. MAP 70'S. DOBUTAMINE AT 4 MCG/KG/MIN, UNCHANGED. NO CP OR SOB. PAD AND CVP HIGHER. SECOND UNIT BLOOD INFUSING. UO LOW. PT'S DAUGHTER CALLED. UPDATED.
--- NOTE | 2021-01-15 14:16 | NUR ---
C/O NOT "FEELING WELL", REQUESTING BLOOD [id number]. NOTIFIED DR. COFFMAN, D50 GIVEN AND BLOOD SUGAR INCREASED TO 172. STATES DOES NOT FEEL WELL WHEN BLOOD SUGAR BELOW 150. C/O SOME CHEST DISCOMFORT, SKIN PALE, WARM. SINUS TACH NO ECTOPY. RX WITH FENTANYL. SLEEPING NOW WITHOUT COMPLAINTS.
[2021-01-15 14:21] LABS: BASOPHILS ABSOLUTE AUTO 0.02 K/mm3 (0.00-0.23); BASOPHILS PERCENT AUTO 0 % (0-2); EOSINOPHILS PERCENT AUTO 0 % (0-6); Hematocrit 28.2 % (37.0-53.0); Hemoglobin 9.4 g/dL (13.5-17.5); IMMATURE GRAN ABSOLUTE AUTO 0.11 K/mm3 (0.00-0.10); IMMATURE GRAN PERCENT AUTO 1 % (0-1); LYMPHOCYTES ABSOLUTE AUTO 0.76 K/mm3 (0.84-5.20); LYMPHOCYTES PERCENT AUTO 5 % (21-46); MONOCYTES ABSOLUTE AUTO 0.67 K/mm3 (0.16-1.47); MONOCYTES PERCENT AUTO 4 % (4-13); Mean Corpuscular HGB 28.1 pg (26.0-34.0); Mean Corpuscular HGB Conc 33.3 g/dL (31.5-36.5); Mean Corpuscular Volume 84 fL (80-100); Mean Platelet Volume 9.6 fL (9.1-12.4); NEUTROPHILS ABSOLUTE AUTO 14.27 K/mm3 (1.96-9.15); NEUTROPHILS PERCENT AUTO 90 % (41-73); NRBC ABSOLUTE 0.02 K/mm3 (0.00-0.02); NRBC Auto 0.1 /100 WBC (0.0-0.2); Platelet Count 216 K/mm3 (150-400); RDW Standard Deviation 49.1 fL (35.1-46.3); Red Blood Cell Count 3.34 M/mm3 (4.30-5.90); White Blood Cell Count 15.83 K/mm3 (4.00-11.30)
--- NOTE | 2021-01-15 14:45 | NUR ---
PT STATES JUST HAVING SOME NAUSEA NOW, DENIES ANY CHEST PAIN. DR. FRANCISCO AT BEDSIDE. UPDATED WITH VITALS, LOW PRESSURES, MAP 70'S. POOR UO. INCREASED PAP AND CVP LEVELS. IMPELLA INCREASED TO P 6. WILL NOT D/C PUMP TODAY
--- NOTE | 2021-01-15 15:53 | NUR ---
DR. FRANCISCO HAS BEEN AT BEDSIDE FOR ARTERIAL PLACEMENT, ATTEMPT RIGHT RADIAL, RIGHT AXILLARY UNSUCCESFUL. PT TOLERATING WELL. CONTINUES TO C/O NAUSEA. DOBUTAMINE INCREASED TO 10 MCG/KG/MIN AND DOPAMINE GTT STARTED, PLANS TO CHANGE TO DOPAMINE D/T IF NAUSEA SIDE EFFECT FROM DOBUTAMINE. UO REMAINS MINIMAL. DR. COFFMAN HERE-UPDATED
--- NOTE | 2021-01-15 16:30 | NUR ---
BLOOD PRESSURES- LEFT ARM 66/51 LEFT FEMORAL JONNY 80/50 IMPELLA PUMP 75/60
--- NOTE | 2021-01-15 16:32 | NUR ---
BLOOD SUGAR REMAINS STABLE. DR. FRANCISCO PLACED LEFT FEMORAL JONNY-PLAN TO CHANGE FROM DOBUTAMINE TO DOPAMINE. PT SLEEPING WHEN UNDISTURBED. SINUS TACH. LABS SENT. IMPELLA INCREASED TO P 8 LEVEL. REVIEWED IMPELLA WITH REP BY PHONE. MONITORING PT CLOSELY. UPDATE TO PT'S DAUGHTER. URINE OUTPUT VERY LOW. CONSULT FOR DR. VIDES. D5NS STARTED AT 75 CC/HR
--- NOTE | 2021-01-15 17:39 | NUR ---
DR. FRANCISCO AT BEDSIDE. PT HYPOTENSIVE. DOPAMINE HAS BEEN INCREASED UP TO 20 MCG/KG/MIN AND DOBUTAMINE AT 10 MCG/KG/MIN. LEVOPHED ADDED WITH IMPROVEMENT OF SBP TO 90'S, MAP 70'S. PLAN TO WEAN DOBUTAMINE OFF TOLERATED. BEDSIDE ECHO DONE-CATHETER IN GOOD POSITION. UO ANURIC. PT REMAINS ALERT, ORIENTED. SKIN WARM/DRY
--- NOTE | 2021-01-15 18:03 | NUR ---
CRISIS ALARM, IMPELLA MALPOSITIONED. PT HAS NOT MOVED. LINE AT 86 UNCHANGED. P LEVEL CHANGED TO [address] FRANCISCO, HERE NOW. BP STABLE WITH LEVOPHED AT 6 MCG/MIN. DOBUTAMINE OFF. STAT ECHO ORDERED. PT'S HERE-UPDATED. PT AWAKE, ALERT, COOPERATIVE. BLADDER SCAN DONE-SMALL AMOUNT FLUID, ABDOMEN CONCAVE, DOES NOT FEEL ANY URGE TO VOID.
--- NOTE | 2021-01-15 18:21 | NUR ---
STAT ECHO DONE AT BEDSIDE. CATHETER MALPOSITIONED, DR. FRANCISCO PULLED OUT TO 83 CM AND POSITIONED CORRECTLY NOW PER ECHO. SITE DI. NO S/S BLEEDING. BLOOD PRESSURES BETTER WITH LEVOPHED. TACHY UP TO 110'S SINUS. WILL DECREASE DOPAMINE TOLERATED.
--- NOTE | 2021-01-15 18:55 | NUR ---
HEPARIN INFUSION 1700 TO 1750 HAS INFUSED 340 UNITS HEPARIN VIA IMPELLA. GOAL IS 13 UNITS/KG/HR SO PERIPHERAL IV HEPARIN CHANGED TO 6.3 UNITS/KG/HR TO MAKE TOTAL DOSE OF 663 UNITS/HR
--- NOTE | 2021-01-15 19:01 | NUR ---
LABS DRAWN FROM ARTERIAL LINE, THEN FROM CENTRAL LINE. SAMPLES HEMOLYZED. LAB TO DRAW FROM POKE NOW. BP STABLE. PT AWAKE, JOKING AT TIMES. REASSURANCE GIVEN REGARDING PLAN OF CARE, EXPLAINED LINES, MEDS, SAFETY. SITES INTACT. CONTINUE TO MONITOR
--- NOTE | 2021-01-15 19:15 | NUR ---
SPECIMEN HEMOLYZED, NOTIFIED DR. FRANCISCO. PLANS TO D/C IMPELLA. PRESSURES IMPROVED. D/C HEPARIN AT 1999. REPORT TO CAROLINE GAMA
[2021-01-15 19:46] LABS: Albumin, Blood 2.5 g/dL (3.4-5.0); Albumin/Globulin Ratio 0.6 (0.8-1.8); Alk Phos 437 U/L (50-136); Anion Gap 10 mmol/L (6-16); Bilirubin, Total 7.2 mg/dL (0.1-1.0); Blood Urea Nitrogen 59 mg/dL (8-24); Bun/Creatinine Ratio 32.2 (12.0-20.0); CO2, Blood 21 mmol/L (21-32); Calcium, Blood 7.5 mg/dL (8.5-10.1); Chloride, Blood 98 mmol/L (98-108); Creatinine, Blood 1.83 mg/dL (0.60-1.20); Globulin, Blood 4.3 g/dL (2.2-4.0); Glomerular Filtration Rate 40 (60-); Glucose, Blood 146 mg/dL (70-99); Sodium, Blood 129 mmol/L (136-145); Total Protein, Blood 6.8 g/dL (6.4-8.2)
[2021-01-15 19:50] LABS: Alanine Aminotransfer (ALT/SGP 3309 U/L (12-78); Potassium, Blood 5.6 mmol/L (3.5-5.5)
[2021-01-15 19:51] LABS: Aspartate Aminotrans (AST/SGOT <3 U/L (12-37)
--- NOTE | 2021-01-15 19:52 | NUR ---
DR. VIDES CALLED-UPDATED WITH PT SITUATION. WILL CALL STENCILER
--- NOTE | 2021-01-15 20:40 | NUR ---
DOCTOR PEEWEE IN TO SEE PATIENT, VERBAL ORDERS OBTAINED. D5NS INCREASED TO 150 CC/HR. POTASSIUM LEVEL REPORTED. PLAN TO CONTINUE TO MONITOR I&O CLOSELY T/O NIGHT. BEDOLLA DRAINING DARK ORANGE/BROWN URINE, UA SENT. SEE REPEAT LAB ORDERS.
[2021-01-15 20:57] LABS: Source, Urine Catheter
[2021-01-15 21:01] LABS: BASOPHILS ABSOLUTE AUTO 0.02 K/mm3 (0.00-0.23); BASOPHILS PERCENT AUTO 0 % (0-2); EOSINOPHILS PERCENT AUTO 0 % (0-6); Hematocrit 29.1 % (37.0-53.0); Hemoglobin 9.9 g/dL (13.5-17.5); IMMATURE GRAN ABSOLUTE AUTO 0.12 K/mm3 (0.00-0.10); IMMATURE GRAN PERCENT AUTO 1 % (0-1); LYMPHOCYTES ABSOLUTE AUTO 1.19 K/mm3 (0.84-5.20); LYMPHOCYTES PERCENT AUTO 7 % (21-46); MONOCYTES ABSOLUTE AUTO 0.87 K/mm3 (0.16-1.47); MONOCYTES PERCENT AUTO 5 % (4-13); Mean Corpuscular HGB 28.4 pg (26.0-34.0); Mean Corpuscular Volume 83 fL (80-100); Mean Platelet Volume 10.1 fL (9.1-12.4); NEUTROPHILS PERCENT AUTO 86 % (41-73); NRBC ABSOLUTE 0.04 K/mm3 (0.00-0.02); NRBC Auto 0.2 /100 WBC (0.0-0.2); Platelet Count 228 K/mm3 (150-400); RDW Coefficient Variation 16.8 % (11.7-14.2); RDW Standard Deviation 50.3 fL (35.1-46.3); Red Blood Cell Count 3.49 M/mm3 (4.30-5.90)
[2021-01-15 21:11] LABS: Bilirubin, Urine Neg (Neg); Blood, Urine 5+ (Neg); Glucose Qualitative, Urine Neg (Neg); Ketones, Urine 1+ (Neg); Leukocyte Esterase, Urine Neg (Neg); Nitrite, Urine Neg (Neg); Protein, Urine 4+ (Neg); Specific Gravity, Urine 1.015 (1.003-1.022); Urobilinogen, Urine NORM (Normal)
[2021-01-15 21:17] LABS: White Blood Cells, Urine 50-100 /hpf (0-5)
[2021-01-15 21:18] LABS: Red Blood Cells, Urine 25-50 /hpf (0-2); Squamous Epithelial Cells Not Seen /hpf (Few)
[2021-01-15 21:20] LABS: Amorphous Light (0-Heavy); Appearance, Urine Cloudy (Clear); Color, Urine Brown (P-Yellow)
[2021-01-15 21:21] LABS: Bacteria Mod /hpf; Granular Casts 0-2 /lpf (0)
--- NOTE | 2021-01-15 21:53 | NUR ---
DOCTOR SHUABE IN TO SEE PATIENT AND REMOVED IMPELLA AND SWAN LINE, DOCTOR HOLDING DIRECT PRESSURE AND THEN PLACING FEMSTOP OVER RIGHT GROIN. HEPARIN DRIP DC'D WAS TURNED OFF AT 1999. DOPAMINE OFF AT 2114, LEVOPHED CONTINUES AT 6 MCG WITH BP PER ART LINE 118/81 MAP 90. FENTANYL 25 MCG GIVEN X2 FOR PROCEDURE. OXYGEN TITRATED UP TO 4L/NC DUE TO PATIENT BIOX DOWN TO 88% WHEN SLEEPING. ART LINE AND CENTRAL LINE REMAIN IN PLACE TO LEFT GROIN.
[2021-01-15 22:54] LABS: Albumin, Blood 2.3 g/dL (3.4-5.0); Anion Gap 9 mmol/L (6-16); Blood Urea Nitrogen 59 mg/dL (8-24); Bun/Creatinine Ratio 28.6 (12.0-20.0); CO2, Blood 22 mmol/L (21-32); Chloride, Blood 99 mmol/L (98-108); Creatinine, Blood 2.06 mg/dL (0.60-1.20); Glomerular Filtration Rate 35 (60-); Glucose, Blood 136 mg/dL (70-99); Phosphorus, Blood 6.1 mg/dL (2.5-4.9); Sodium, Blood 130 mmol/L (136-145)
--- NOTE | 2021-01-16 00:30 | NUR ---
FEMSTOP REMAINS IN PLACE WITH SMALL AMT OF OOZING SEEN INTO DRESSING, PRESSURE INCREASED BACK TO 60. PATIENT HAVING CRAMPING IN RIGHT LEG, WITH LITTLE RELIEF WITH FENTANYL. LEVOPHED CONTINUES ART LINE WITH GOOD WAVEFORM. CONTINUES TO HAVE VERY POOR URINE OUTPUT, WITH DARK BROWN/ORANGE URINE. PATIENT ALSO APPEARS MORE JAUNDICE. HAVING DIFFICULTY WITH MONITORING BIOX.
--- NOTE | 2021-01-16 01:17 | NUR ---
DOCTOR NOLAN GIVEN UPDATE ON PATIENT, NO CHANGES AT THIS TIME.
[2021-01-16 01:26] LABS: Albumin, Blood 2.1 g/dL (3.4-5.0); Anion Gap 14 mmol/L (6-16); Blood Urea Nitrogen 60 mg/dL (8-24); Bun/Creatinine Ratio 28.2 (12.0-20.0); CO2, Blood 15 mmol/L (21-32); Calcium, Blood 8.1 mg/dL (8.5-10.1); Chloride, Blood 104 mmol/L (98-108); Creatinine, Blood 2.13 mg/dL (0.60-1.20); Glomerular Filtration Rate 33 (60-); Glucose, Blood 81 mg/dL (70-99); Phosphorus, Blood 6.2 mg/dL (2.5-4.9); Potassium, Blood 5.3 mmol/L (3.5-5.5); Sodium, Blood 133 mmol/L (136-145)
--- NOTE | 2021-01-16 01:42 | NUR ---
DOCTOR PEEWEE NOTIFIED OF LABS AND I&O AND GIVEN UPDATE ON PATIENT. SEE NEW ORDERS
[2021-01-16 04:06] LABS: BASOPHILS ABSOLUTE AUTO 0.02 K/mm3 (0.00-0.23); BASOPHILS PERCENT AUTO 0 % (0-2); EOSINOPHILS PERCENT AUTO 0 % (0-6); Hematocrit 26.2 % (37.0-53.0); Hemoglobin 8.7 g/dL (13.5-17.5); IMMATURE GRAN ABSOLUTE AUTO 0.18 K/mm3 (0.00-0.10); IMMATURE GRAN PERCENT AUTO 1 % (0-1); LYMPHOCYTES ABSOLUTE AUTO 1.42 K/mm3 (0.84-5.20); LYMPHOCYTES PERCENT AUTO 9 % (21-46); MONOCYTES ABSOLUTE AUTO 1.08 K/mm3 (0.16-1.47); MONOCYTES PERCENT AUTO 7 % (4-13); Mean Corpuscular HGB 28.5 pg (26.0-34.0); Mean Corpuscular HGB Conc 33.2 g/dL (31.5-36.5); Mean Corpuscular Volume 86 fL (80-100); NEUTROPHILS ABSOLUTE AUTO 13.49 K/mm3 (1.96-9.15); NEUTROPHILS PERCENT AUTO 83 % (41-73); NRBC ABSOLUTE 0.08 K/mm3 (0.00-0.02); NRBC Auto 0.5 /100 WBC (0.0-0.2); Platelet Count 214 K/mm3 (150-400); RDW Coefficient Variation 17.3 % (11.7-14.2); RDW Standard Deviation 53.4 fL (35.1-46.3); Red Blood Cell Count 3.05 M/mm3 (4.30-5.90); White Blood Cell Count 16.19 K/mm3 (4.00-11.30)
--- NOTE | 2021-01-16 04:07 | NUR ---
PATIENT RELAXED AND SLEEPING AWAKENS TO SLIGHT STIMULI, FALLING BACK TO SLEEP. FEMSTOP TO RIGHT GROIN DEFLATED AND REMAINS IN PLACE, NO FURTHER OOZING SEEN.
[2021-01-16 04:42] LABS: Albumin, Blood 2.3 g/dL (3.4-5.0); Albumin/Globulin Ratio 0.6 (0.8-1.8); Bilirubin, Direct 3.5 mg/dL (0.0-0.3); Bilirubin, Indirect 5.5 mg/dL (0.1-0.7); Bun/Creatinine Ratio 28.1 (12.0-20.0); Calcium, Blood 7.5 mg/dL (8.5-10.1); Creatinine, Blood 2.24 mg/dL (0.60-1.20); Globulin, Blood 3.6 g/dL (2.2-4.0); Potassium, Blood 5.4 mmol/L (3.5-5.5); Total Protein, Blood 5.9 g/dL (6.4-8.2)
--- NOTE | 2021-01-16 05:32 | NUR ---
DOCTOR PEEWEE NOTIFIED OF AM LABS, PLAN TO CONTINUE IV FLUIDS AT SAME RATE, AND RECOMMEND TO NOT INCREASE RATE FOR GLUCOSE. IF NEEDED CAN CHANGE CONCENTRATION TO PREVENT VOLUME OVERLOAD DUE TO POOR URINE OUTPUT.
--- NOTE | 2021-01-16 05:57 | NUR ---
FEMSTOP OFF, CLEAR DRESSING WITH LUL PLACED. SLIGHT SLOW OOZING FROM INSERTION SITE SEEN AFTER CLEANING SITE. PATIENT DELICIA WELL
--- NOTE | 2021-01-16 06:31 | NUR ---
DOCTOR AFTAB NOTIFIED OF GLUCOSE BACK DOWN TO 65. ORDER OBTAINED FOR D10 AT 75/HR
--- NOTE | 2021-01-16 06:33 | NUR ---
SUMMARY PATIENT SLEEPING WHEN UNDISTURBED, AWAKENS TO SLIGHT STIMULI, A&O X3. RIGHT GROIN SITE DRESSING CD&I NO FURTHER OOZING SEEN. LEFT GROIN WITH ART LINE AND CENTRAL LINE IN PLACE. PATIENT HAVING HYPOGLYCEMIA THIS AM, LONG ACTING INSULIN DC'D AND IV FLUIDS CHANGED TO D10 AT 75/HR TO AVOID INCREASING FLUID VOLUME. LEVOPHED CONTINUES TITRATED TO 3 MCG. PATIENT CONTINUES TO HAVE VERY POOR URINE OUTPUT. DOCTOR PEEWEE FOLLOWING CHEM'S T/O NIGHT. BIOX 88-93% ON 4L/NC AT TIMES HAVING DIFFICULTY OBTAINING BIOX.
--- NOTE | 2021-01-16 08:30 | NUR ---
ASSESSMENT- PT AWAKENS TO NAME, ABLE TO ANSWER QUESTIONS APPROPRIATELY. PAINFUL WITH MOVEMENT. C/O RIGHT KNEE PAIN. OLD BRUISING BILATERAL KNEES. EDEMA HANDS/WRISTS, FEET/ANKLES. PHYSICIANS-DR. UNDERWOOD, DR. COFFMAN, DR. VIDES HERE TO DISCUSS PT. UPDATED. PLANS FOR DIALYSIS CATH TODAY AND DIALYSIS. PT AGREEABLE. RIGHT FEMORAL SITE DI WITH OLD DRAINAGE AT SITE. LEFT FEMORAL SITE DI WITH CENTRAL LINE, RIGHT FEMORAL ARTERIAL LINE INTACT. SBP LOW-INCREASED LEVOPHED UP TO 5 MCG/MIN. D10 AT 75 CC/HR. PIV X2 INTACT. UO SCANT 5 CC DARK ORANGE VIA BEDOLLA. NO N/V. ABDOMEN FLAT. LUNGS CLEAR, DENIES SOB OR CHEST PAIN. REPOSITIONED. RX WITH FENTANYL FOR C/O PAIN WITH IMPROVEMENT-NOW SLEEPING WHEN UNDISTURBED.
--- NOTE | 2021-01-16 09:44 | NUR ---
DR. LORENZO TO ASSESS PT, PLANS FOR DIALYSIS CATH PLACEMENT. PT C/O NAUSEA-RX GIVEN, PT RESTING. BLOOD SUGAR 84-D10 INFUSING
--- NOTE | 2021-01-16 11:15 | NUR ---
DR. COFFMAN HERE-INJECTED RIGHT KNEE. PT TOLERATED WELL. VSS. NO APPETITE. SLEEPING WHEN UNDISTURBED
--- NOTE | 2021-01-16 12:40 | NUR ---
AM CARES DONE, REPOSITIONED. SLEEPING WHEN UNDISTURBED, AWAKENS TO NAME, ABLE TO FOLLOW DIRECTIONS. NO ENERGY. TAKING JUST SIPS FLUIDS. NO FURTHER NAUSEA. ABLE TO DECREASE LEVOPHED TO 2 MCG/MIN. HANDS AND KNEES WITH PURPLE DISCOLORATION. SKIN COOL, DRY. DR. LORENZO PLACED DIALYSIS CATH [facility]. PT TOLERATED WELL. PLANS FOR DIALYSIS TODAY
--- NOTE | 2021-01-16 13:11 | NUR ---
REPEAT BLOOD SUGAR 85. SKIN COOL/DRY. CONTINUE TO MONITOR. NEEDING TO INCREASE OXYGEN TO MAINTAIN SATURATION LEVELS
--- NOTE | 2021-01-16 14:36 | NUR ---
BLOOD SUGAR 57. D50 GIVEN. PT REPOSITIONED, TOLERATED ORAL CARE. NOTIFIED DR COFFMAN. PLAN TO CONTINUE TO CHECK BLOOD SUGARS Q2H AND TREAT WITH D50 NECESSARY.
--- NOTE | 2021-01-16 15:28 | NUR ---
PT'S FAMILY HERE-UPDATED. QUESTIONS ANSWERED. RX FOR PAIN. ASLEEP WHEN UNDISTURBED. LETHARGIC.
--- NOTE | 2021-01-16 16:56 | NUR ---
DR. VIDES HERE-UPDATED. ANURIC. PLANS FOR REPEAT DIALYSIS TOMORROW. BLOOD CULTURES ORDERED. CONTINUE D10 ORDERED AT 75 CC/HR
--- NOTE | 2021-01-16 17:03 | NUR ---
REPEAT BLOOD SUGAR NOW AT 1530 WAS 164. SUGAR AT [address] VIDES UPDATED.
--- NOTE | 2021-01-16 19:15 | NUR ---
DIALYSIS NEW START TOOK THE TRAVELER [DIALYSIS MACHINE] TO THE PT'S ROOM. THE MACHINE WOULD NOT GO INTO CONDUCTIVITY. TRIED SEVERAL THINGS WITHOUT SUCCESS. THEN TOOK THE MACHINE BACK TO THE ROOM AND SETUP A DIFFERENT MACHINE TO USE.
--- NOTE | 2021-01-16 19:55 | NUR ---
BLOOD SUGAR LOW-REPEATED D50, D10 INFUSING AT 75 CC/HR. BP REMAINS STABLE WITH LEVOPHED AT 2 MCG/MIN. SINUS TACH 100'S. LEFT FEMORAL CENTRAL AND ARTERIAL LINES INTACT. LETHARGIC, AWAKENS TO NAME. REFUSES FOOD/DRINK. BACK TO SLEEP QUICKLY. POOR PERFUSION, DIFFICULTY AT TIMES OBTAINING SATURATIONS. RESPIRATIONS UNLABORED.
--- NOTE | 2021-01-16 22:00 | NUR ---
Care Assumed 1900 Pt awakes to verbal stimuli, opens eyes, following direction but slow to respond. Levophed placed on SB when care assumed and restarted shortly after due to low MAPs. Currently Levophed GTT 1 mcg/min, MAP 70's. D10 at 75 ml/hr, infusing via art line. Art line zeroed with Emma Hernandez RN when care assumed. Denies N/V but states having pain to right knee, treated per emar with fentanyl with good effect. Pt is on 9 L via oxymizer to keep SPO2 > 90%. Call light within reach.
--- NOTE | 2021-01-16 23:09 | NUR ---
Phone call- Daughter Spoke to patients daughterLorena. Updated on patient status. Daughter states pt hurt his knees when he fell at home prior to admission, would like provider to know this. Will let dayshift know to pass the message.
--- NOTE | 2021-01-17 01:38 | NUR ---
Provider Call- hypoglycemia/ reassessment Dr. Correa called in regards to patients hypoglycemia (36). After giving 1 amp of dextrose 50%, glucose 134. Recieved order to increase rate of dextrose 10% to 100 ml/hr and increase to 125 ml/hr if glucose < 60. Pt slow to respond. States feeling very sleepy. Nods yes/no to questions. Levo restarted at 1 mcg/min due to MAP 64 on art line. Pt remains on oxymizer at 9 L, SPO2 > 97%, lung sounds clear, shallow breathing. Amaya in place, 3 ml of dark manisha urine output. Temp of 100. Call light within reach, pt has not used it.
--- NOTE | 2021-01-17 02:39 | NUR ---
Update - pain and hypoglycemia Pt yelling in pain, holding right upper thigh. Pt states pain 7/10, treated per emar with good effect. Pt easily falls asleep but awaken with verbal stimuli. Nods yes to knowing location but unable to state. Levophed at 1 mcg/min, MAP low 70's. Glucose rechecked, 57, Dextrose 10% increased to 125 ml/hr per Dr. Correa.
--- NOTE | 2021-01-17 05:23 | NUR ---
Hypoglycemia, provider call Dr. Correa called in regards to patients hypoglycemia (83 to 68 after rate increase to 125 ml/hr). Recieved new orders to increase rate of D 10% to 150 ml/hr.
--- NOTE | 2021-01-17 07:33 | NUR ---
Shift Summary Pt remains on norepinephrine 0.5 mcg/min, BP stable per ART line. Pt has had multiple episodes of hypoglycemia, treated per emar. Dextrose 10% at rate of 150 ml/hr,last glucose of 87. Pt is slow to respond. Responds to verbal stimuli, answer questions with yes/no about pain and if he knows location. Says few words, very weak. Remains on 7 L via oxymizer, SPO2 > 95%. Extrems cool to touch, forehead probe with improved SPO2 reading, changed positions Q 2 on forehead to prevent skin breakdown. Sinus tach t/o shift.
[2021-01-17 07:36] LABS: BASOPHILS ABSOLUTE AUTO 0.02 K/mm3 (0.00-0.23); BASOPHILS PERCENT AUTO 0 % (0-2); EOSINOPHILS ABSOLUTE AUTO 0.01 K/mm3 (0.00-0.68); EOSINOPHILS PERCENT AUTO 0 % (0-6); Hematocrit 23.9 % (37.0-53.0); Hemoglobin 7.9 g/dL (13.5-17.5); IMMATURE GRAN ABSOLUTE AUTO 0.12 K/mm3 (0.00-0.10); IMMATURE GRAN PERCENT AUTO 1 % (0-1); LYMPHOCYTES PERCENT AUTO 5 % (21-46); MONOCYTES ABSOLUTE AUTO 0.88 K/mm3 (0.16-1.47); MONOCYTES PERCENT AUTO 6 % (4-13); Mean Corpuscular HGB 28.1 pg (26.0-34.0); Mean Corpuscular HGB Conc 33.1 g/dL (31.5-36.5); Mean Corpuscular Volume 85 fL (80-100); Mean Platelet Volume 12.4 fL (9.1-12.4); NEUTROPHILS ABSOLUTE AUTO 12.93 K/mm3 (1.96-9.15); NEUTROPHILS PERCENT AUTO 88 % (41-73); NRBC ABSOLUTE 0.08 K/mm3 (0.00-0.02); NRBC Auto 0.5 /100 WBC (0.0-0.2); Platelet Count 136 K/mm3 (150-400); RDW Coefficient Variation 17.1 % (11.7-14.2); RDW Standard Deviation 51.6 fL (35.1-46.3); Red Blood Cell Count 2.81 M/mm3 (4.30-5.90); White Blood Cell Count 14.66 K/mm3 (4.00-11.30)
[2021-01-17 08:22] LABS: Albumin, Blood 2.2 g/dL (3.4-5.0); Albumin/Globulin Ratio 0.7 (0.8-1.8); Bilirubin, Direct 6.4 mg/dL (0.0-0.3); Bilirubin, Indirect 3.2 mg/dL (0.1-0.7); Bilirubin, Total 9.6 mg/dL (0.1-1.0); Bun/Creatinine Ratio 18.5 (12.0-20.0); Calcium, Blood 6.8 mg/dL (8.5-10.1); Creatinine, Blood 2.11 mg/dL (0.60-1.20); Globulin, Blood 3.1 g/dL (2.2-4.0); Potassium, Blood 4.4 mmol/L (3.5-5.5); Total Protein, Blood 5.3 g/dL (6.4-8.2)
[2021-01-17 11:21] LABS: pH Blood Arterial 7.41 (7.35-7.45)
[2021-01-17 11:22] LABS: PCO2 Arterial 32.4 mmHg (35-45); PO2 Arterial 133 mmHg (80-100)
--- NOTE | 2021-01-17 11:32 | NUR ---
REASSESSMENT PT CONTINUES TO BE LETHARGIC, WAKES TO VOICE BUT DOESN'T MAINTAIN ATTENTION AND QUICKLY DRIFTS OFF. PT'S RR DROPPED AND HAS BEEN MAINTAINING AROUND 6 DESPITE SPO2 BEING IN THE UPPER 90S. DR. COFFMAN NOTIFIED AND ORDER FOR ABG RECEIVED. DR. COFFMAN TO BEDSIDE TO EVAL PT. PT'S LUNGS REMAIN CLEAR. OXYGEN HAS BEEN TITRATED DOWN TO 4L/NC FROM 7L OXYMIZER THIS MORNING. DR. FRANCISCO HAD ORDERED 1 UNIT PRBC, BUT AFTER DR. COFFMAN UPDATED PT'S LEXI HE DC'D IT. DR. FRANCISCO AWARE. PALLIATVE CONSULT PLACED. PT IS SR. LEVOPHED TURNED OFF THIS MORNING, THEN RESTARTED AROUND 1100 WHEN MAP STARTED TO DROP BELOW 65. PT REMAINS JAUNDICED. D10 STILL INFUSING. PT'S BLOD SUGAR CHECKED BY FINGERSTICK AND WAS 18, BUT PT'S FINGERS ARE DUSKY AND COLD SO RECHECKED FROM IJ LINE AND GLUCOSE WAS IN THE 80S. PT'S LEXI IS COMING IN TO SEE PT. PLAN FOR PALLIATIVE TO MEET WITH HER ONCE SHE IS HERE.
--- NOTE | 2021-01-17 13:22 | NUR ---
Pt resting in bed with his eyes closed and is non responsive. Pt's daughter Lorena is at bedside and is tearful. Offered emotional support and validated concerns. Lorena reports being Pt's only child and Pt has 3 grandchildren. Continued therapeutic listening and answered questions. Engaged in therapeutic discussion regarding goals of care. Educated on comfort care philosophy and discussed code status. Educated on life sustaining measures including risk factors and implications of CPR. Lorena V/U and states when Pt had his stents placed Pt told MD he wanted CPR. Lorena also reports if Pt knew information and current condition he probably would not want CPR. Lorena reports plan to discuss further with her mom when she arrives including goals of care. Continued therapeutic listening. Ended visit to allow Lorena time with her dad (Pt). Spoke with Bedside RN Genesis and discussed case. Palliative Care will remain available.
--- NOTE | 2021-01-17 17:52 | NUR ---
SHIFT SUMMARY AFTER HAVING DISCUSSIONS WITH MULTIPLE FAMILY MEMBERS AND THE DOCTOR PT'S DAUGHTER DECIDED TO MAKE PT COMFORT CARE. DR. COFFMAN NOTIFIED. THIS RN AND CANDACE, PALLIATIVE CARE RN, HAVE HAD MULTIPLE CONVERSATIONS WITH FAMILY DISCUSSING WHAT TO EXPECT WITH GOING COMFORT CARE. IV MEDICATIONS STOPPED AND PRN ROXANOL GIVEN PT'S DAUGHTER HAS EXPRESSED MULTIPLE TIMES THAT SHE IS WORRIED ABOUT HIM SUFFERING. PT APPEARS COMFORTABLE AT THIS TIME.
--- NOTE | 2021-01-17 17:56 | NUR ---
Multiple supportive visits today. Family at bedside and this RN offered emotional support. Answered questions and offered therapeutic listening. Family decides to pursue comfort measures only. Bedside RN Genesis calls Dr Garcia who will place comfort care orders. Continued supportive visit. Neil Carrillo reports plan to go home for rest and is requesting a call from staff for any change in condition. Family expresses appreciation of visit. Placed order for Lorazepam 1-2mg IV Q 2 hours PRN for anxiety per V/O from Dr Garcia. Pt to transfer to medical floor. Neil Carrillo's phone number [phone] Palliative Care will remain available.
--- NOTE | 2021-01-17 18:00 | NUR ---
Spiritual care note: Provided supportive visit to ex-, Susie, who was alone at bedside. She was tearful and appreciative of gentle behavioral health counselor and prayer. Code Enforcement Officer services will remain available.
--- NOTE | 2021-01-17 20:31 | NUR ---
PT. IS CALM, COMFORTABLE AT THIS TIME. RESPIRATORY RATE ~ 6 BPM, REPOSITIONED AND PERFORMED ORAL AND CATHETER CARE. PLAN TO REMOVE ARTERIAL LINE ONCE FINISH CHARTING, WILL PREMEDICATE BEFORE PROCEDURE. WILL CONTINUE TO MONITOR.
--- NOTE | 2021-01-18 04:43 | NUR ---
SHIFT SUMMARY PATIENT HAS SLEPT WELL THROUGH THE NIGHT. GAVE 1 DOSE OF FENTANYL PRIOR TO REMOVING CENTRAL LINE, ARTERIAL LINE FROM LEFT GROIN, TOLERATED PROCEDURE WITH NO C/O PAIN, NO COMPLICATIONS. PT. HAS BEEN COMFORTABLE, REPOSITIONED EVERY 2 HOURS, PERFORMED ORAL CARE EVERY 4 HOURS. NO OUTWARD SIGNS/SYMPTOMS OF PAIN OR DISCOMFORT. WILL CONTINUE TO MONITOR.
--- NOTE | 2021-01-18 06:00 | NUR ---
MR. HAGER PASSED FROM THIS EARTH AT 05:00 01/18. HE WAS NOT OBSERVED TO BE IN ANY PAIN. THIS NURSE STAYED AT BEDSIDE HE PASSED. FAMILY AND DR. FUENTES NOTIFIED OF PASSING, FAMILY ON WAY TO SEE THEIR FATHER. IT HAS BEEN A PLEASURE TAKING CARE OF THIS PATIENT.
[2021-01-18 07:09] LABS: HBSAG SCREEN Negative (Negative); HEP A AB, IGM Negative (Negative); HEP B CORE AB, IGM Negative (Negative); HEP C VIRUS AB <0.1 (0.0-0.9)
== END 2021-01-18 05:00 | DRG 215 ==
LOC: ER 17:10 → ICUW 17:48
PROVIDERS: Emergency Medicine; Internal Medicine; ADMIT Internal Medicine Cardiovascular Disease
PROC: 02HA3RZ Insertion of Short-term External Heart Assist System into Heart, Percutaneous Approach (ICD-10-PCS; principal; 2021-01-14)
PROC: 027135Z Dilation of Coronary Artery, Two Arteries with Two Drug-eluting Intraluminal Devices, Percutaneous Approach (ICD-10-PCS; 2021-01-14)
PROC: 02703ZZ Dilation of Coronary Artery, One Artery, Percutaneous Approach (ICD-10-PCS; 2021-01-14)
PROC: 5A0221D Assistance with Cardiac Output using Impeller Pump, Continuous (ICD-10-PCS; 2021-01-14)
PROC: 4A023N8 Measurement of Cardiac Sampling and Pressure, Bilateral, Percutaneous Approach (ICD-10-PCS; 2021-01-14)
PROC: B2111ZZ Fluoroscopy of Multiple Coronary Arteries using Low Osmolar Contrast (ICD-10-PCS; 2021-01-14)
PROC: 02HP32Z Insertion of Monitoring Device into Pulmonary Trunk, Percutaneous Approach (ICD-10-PCS; 2021-01-14)
PROC: B41D1ZZ Fluoroscopy of Aorta and Bilateral Lower Extremity Arteries using Low Osmolar Contrast (ICD-10-PCS; 2021-01-14)
PROC: 3E043XZ Introduction of Vasopressor into Central Vein, Percutaneous Approach (ICD-10-PCS; 2021-01-14)
PROC: 30233N1 Transfusion of Nonautologous Red Blood Cells into Peripheral Vein, Percutaneous Approach (ICD-10-PCS; 2021-01-14)
PROC: 03HY32Z Insertion of Monitoring Device into Upper Artery, Percutaneous Approach (ICD-10-PCS; 2021-01-15)
PROC: 4A133B1 Monitoring of Arterial Pressure, Peripheral, Percutaneous Approach (ICD-10-PCS; 2021-01-15)
PROC: 4A133J1 Monitoring of Arterial Pulse, Peripheral, Percutaneous Approach (ICD-10-PCS; 2021-01-15)
PROC: 5A1D70Z Performance of Urinary Filtration, Intermittent, Less than 6 Hours Per Day (ICD-10-PCS; 2021-01-16)
PROC: 02HV33Z Insertion of Infusion Device into Superior Vena Cava, Percutaneous Approach (ICD-10-PCS; 2021-01-16)
PROC: B548ZZA Ultrasonography of Superior Vena Cava, Guidance (ICD-10-PCS; 2021-01-16)
DX: I21.19 ST elevation (STEMI) myocardial infarction involving other coronary artery of inferior wall (principal); J18.9 Pneumonia, unspecified organism; I50.23 Acute on chronic systolic (congestive) heart failure; K72.00 Acute and subacute hepatic failure without coma; N17.0 Acute kidney failure with tubular necrosis; E43 Unspecified severe protein-calorie malnutrition; G92 Toxic encephalopathy; R64 Cachexia; Z68.1 Body mass index [BMI] 19.9 or less, adult; I42.8 Other cardiomyopathies; E87.2 Acidosis; I13.0 Hypertensive heart and chronic kidney disease with heart failure and stage 1 through stage 4 chronic kidney disease, or unspecified chronic kidney disease; I47.1 Supraventricular tachycardia; I47.2 Ventricular tachycardia; R57.0 Cardiogenic shock; Z51.5 Encounter for palliative care; Z66 Do not resuscitate; F32.9 Major depressive disorder, single episode, unspecified; G47.00 Insomnia, unspecified; E86.0 Dehydration; G43.909 Migraine, unspecified, not intractable, without status migrainosus; I25.10 Atherosclerotic heart disease of native coronary artery without angina pectoris; E03.9 Hypothyroidism, unspecified; R00.1 Bradycardia, unspecified; K21.9 Gastro-esophageal reflux disease without esophagitis; E11.65 Type 2 diabetes mellitus with hyperglycemia; J44.9 Chronic obstructive pulmonary disease, unspecified; M17.11 Unilateral primary osteoarthritis, right knee; I25.5 Ischemic cardiomyopathy; E11.649 Type 2 diabetes mellitus with hypoglycemia without coma; E87.5 Hyperkalemia; E11.22 Type 2 diabetes mellitus with diabetic chronic kidney disease; N18.9 Chronic kidney disease, unspecified; D63.1 Anemia in chronic kidney disease; L40.9 Psoriasis, unspecified; Z88.3 Allergy status to other anti-infective agents; Z91.048 Other nonmedicinal substance allergy status; Z88.8 Allergy status to other drugs, medicaments and biological substances; Z91.14 Patient's other noncompliance with medication regimen; Z79.899 Other long term (current) drug therapy; Z79.4 Long term (current) use of insulin; Z79.82 Long term (current) use of aspirin
CPT/HCPCS: 33210; 33990; 36430; 36600; 36620; 71045; 76937; 80047; 80048; 80053; 80069; 80074; 80076; 81001; 82248; 82550; 82803; 82947; 83605; 84132; 84484; 85014; 85025; 85347; 85730; 86317; 86850; 86900; 86901; 86923; 87040; 87086; 93005; 93010; 93308; 93321; 93453; 96365; 96375; 99285-25; A9270; A9270-GY; C1725; C1751; C1752; C1757; C1760; C1769; C1874; C1887; C1894; C9606; J1250; J1265; J1644; J1815; J1940; J2370; J2405; J2550; J3010; J3246; J3301; J7030; J7040; J7042; J7050; J7060; P9016; Q9967